=== PATIENT | male | born 1965 | race Caucasian/White ===

== ENCOUNTER 2017-11-26 02:50 | Emergency (ER) | payer OTHER ==
[~2017-11-26] VITALS: Ht 167.6 cm; Wt 96.2 kg
--- NOTE | 2017-11-26 02:55 | ED.ADGEN ---
Adult General Chief Complaint Chief Complaint ".. I tripped over my dog Aliyah... she was upset because some company came to door.. and hurt this Rt. shoulder in the fall.. I hurt this before.. I tired to put some cream on it.. to make it better... but it is still hurting... HPI HPI Patient is a 52 year old male who presents with above hx and complaints of Rt shoulder pain after being tripped by his dog at 2130 hrs tonight. Has deltoid sensation, and distal neurovascular intact. Pt. unable to raise are more than 40 degrees from his side. Give away weakness if assisted to higher than 40. Pt. denies other injury. Pt. has history of previous clavicle and right shoulder fracture. Review of Systems Review of Systems Constitutional: Denies fever or chills [] Eyes: Denies change in visual acuity, redness, or eye pain [] HENT: Denies nasal congestion or sore throat [] Respiratory: Denies cough or shortness of breath [] Cardiovascular: No additional information not addressed in HPI [] GI: Denies abdominal pain, nausea, vomiting, bloody stools or diarrhea [] : Denies dysuria or hematuria [] Musculoskeletal: Denies back pain or joint pain []Except complaints of Rt. shoulder pain. Integument: Denies rash or skin lesions [] Neurologic: Denies headache, focal weakness or sensory changes [] Endocrine: Denies polyuria or polydipsia [] All other systems were reviewed and found to be within normal limits, except as documented in this note. Family History Family History Non-contributory. Current Medications Current Medications Current Medications Medications (Trade) Dose Ordered Sig/Sonia Start Time Stop Time Status Last Admin Dose Admin Hydrocodone Bitartrate/ Ibuprofen (Vicoprofen 7.5-200) 2 tab 1X ONCE 11/26/17 03:15 11/26/17 03:16 DC 11/26/17 03:08 2 TAB Allergies Allergies Allergies Coded Allergies Type Severity Reaction Last Updated Verified quetiapine Allergy Unknown 11/26/17 Yes Physical Exam Physical Exam Constitutional: Moderate acute distress, non-toxic appearance. [] HENT: Normocephalic, atraumatic, bilateral external ears normal, oropharynx moist, no oral exudates, nose normal. [] Eyes: PERRLA, EOMI, conjunctiva normal, no discharge. [] Neck: Normal range of motion, no tenderness, supple, no stridor. [] Cardiovascular:Heart rate regular rhythm, no murmur [] Lungs & Thorax: Bilateral breath sounds equal at apex with scattered wheezing auscultation [] Abdomen: Bowel sounds normal, soft, no tenderness, no masses, no pulsatile masses. [] Skin: Warm, dry, no erythema, no rash. [] Tattoos Back: No tenderness, no CVA tenderness. [] Extremities: No tenderness, no cyanosis, no clubbing, ROM intact, no edema. [] Except Rt shoulder- as per HPI Neurologic: Alert and oriented X 3, normal motor function, normal sensory function, no focal deficits noted. [] Psychologic: Affect anxious, judgement normal, mood normal. [] Current Patient Data Vital Signs Vital Signs Date Time Temp Pulse Resp B/P (MAP) Pulse Ox O2 Delivery O2 Flow Rate FiO2 11/26/17 03:00 97.5 76 16 95 Room Air EKG EKG [] Radiology/Procedures Radiology/Procedures My interpretation of chest x-ray shows no acute cardiopulmonary findings. My interpretation of right shoulder shows old degenerative joint changes. No obvious fracture or dislocation.[] Course & Med Decision Making Course & Med Decision Making Pertinent Labs and Imaging studies reviewed. (See chart for details). Rest, ice packs, sling, and follow-up primary care. Have follow-up orthopedics. Passive range of motion 4 times a day. Tylenol and ibuprofen for pain. Marked pain may have Vicoprofen up 4 times a day. Return if any concerns.] Final Impression Final Impression 1. Rt. Shoulder []-rotator cuff injury Dragon Disclaimer Dragon Disclaimer This electronic medical record was generated, in whole or in part, using a voice recognition dictation system. MICHELE DURAN MD Nov 26, 2017 02:55
[2017-11-26 03:00] VITALS: BP 122/83
[2017-11-26] MEDS ORDERED: HYDROcodon/IBUPROFEN 7.5/200MG 1 TAB TABLET PO ONE (03:15)
[2017-11-26] MEDS ORDERED: HYDR-79 PO (03:21)
--- NOTE | 2017-11-26 08:33 | RAD ---
Chest, PA and Lateral: Technique: PA and lateral views of the chest were obtained. History: Chest pain., Fall Comparison: None. Findings: The heart and pulmonary vasculature appear within normal limits. The lungs are clear. The pleural margins are clear. Old right rib fracture. Impression: No acute chest process is seen. Electronically signed by: Des Hauser MD (11/26/2017 8:29 AM) [facility]
--- NOTE | 2017-11-26 08:34 | RAD ---
Examination: 2 views of the right shoulder HISTORY: History of fall, right shoulder pain COMPARISON: None available. FINDINGS: The humerus head is within the glenoid. There is mild joint space loss identified in the acromioclavicular joint and the glenohumeral joint. IMPRESSION: 1. No acute osseous findings. Electronically signed by: Des Hauser MD (11/26/2017 8:30 AM) [facility]
== END 2017-11-26 03:35 | disposition home or self-care (01) ==
LOC: ER 02:50
DX: S46.001A Unspecified injury of muscle(s) and tendon(s) of the rotator cuff of right shoulder, initial encounter (principal); R07.9 Chest pain, unspecified; Z88.8 Allergy status to other drugs, medicaments and biological substances; W01.0XXA Fall on same level from slipping, tripping and stumbling without subsequent striking against object, initial encounter; Y93.89 Activity, other specified; Y92.89 Other specified places as the place of occurrence of the external cause; Y99.8 Other external cause status
CPT/HCPCS: 71046; 73030; 99284

== ENCOUNTER → 2019-09-16 | Outpatient (CLI) | payer OTHER ==
[~2019-09-16] MED LIST: BUSP30TA PO; DEXL60CA2 PO; FLUT1AER IH; HYDR-1179 PO; LAMO200T3 PO; LEVE500T56 PO; LEVO75TA5 PO; LORA10TA55 PO; MONT10TA80 PO; VITA50004 PO
== END | disposition home or self-care (01) ==
LOC: LAB 13:52
PROVIDERS: ATTEND Nurse Anesthetist, Certified Registered
DX: Z01.818 Encounter for other preprocedural examination (principal); Z11.59 Encounter for screening for other viral diseases; K21.9 Gastro-esophageal reflux disease without esophagitis; R13.10 Dysphagia, unspecified
CPT/HCPCS: 36415; U0003

== ENCOUNTER → 2019-10-01 | Outpatient (CLI) | payer OTHER | END | disposition home or self-care (01) | LOC: LAB 16:10 | PROVIDERS: ATTEND Nurse Anesthetist, Certified Registered | DX: Z01.812 Encounter for preprocedural laboratory examination (principal); K21.9 Gastro-esophageal reflux disease without esophagitis; R13.10 Dysphagia, unspecified; Z20.828 Contact with and (suspected) exposure to other viral communicable diseases | CPT/HCPCS: C9803; U0003; 36415 ==

== ENCOUNTER → 2019-10-04 | Day surgery (SDC) | payer OTHER ==
[~2019-10-04] MED LIST changes: +IV RINGERS SOLUTION,LACTATED 1,000 ML IV SCH; +MIDAZOLAM HCL PF 2 MG/2 ML VIAL. IV ONE; +ONDANSETRON PF 4 MG/2 ML VIAL. IV PRN; +PROPOFOL 10,000 MCG/ML (20ML) VIAL IV ONE
[2019-10-04 13:37] VITALS: BP 146/85
--- NOTE | 2019-10-08 18:06 | PATHOLOGY ---
[facility] Accession Number: [id number] . 01 Material submitted: . PART A: stomach - ANTRUM GASTRITIS PART B: stomach - GASTRIC BODY POLYP . 01 Clinical history: . GERD . 02 Diagnosis: A. Gastric biopsies, antrum: - Focally active chronic gastritis, mild to moderate. . B. Gastric biopsy, gastric body polyp: - Hyperplastic polyp. (JPM:kmii 10/08/2019) QMS 10/08/2019 0938 Local . 02 Comment: Sections of the gastric antral biopsy reveal segments of gastric antral/body transition mucosa showing congestion and focally active, mild to focal moderate chronic inflammation. There are several lymphoid nodules present within the mucosa. A properly controlled immunoperoxidase stain for Helicobacter is negative for Helicobacter organisms. . Sections of the gastric body polyp biopsy reveal a polypoid segment of gastric body mucosa showing congestion and superficial foveolar hyperplasia consistent with hyperplastic polyp. There are no adenomatous changes or evidence of malignancy. (JPM:kimi; 10/08/2019) . Special stain performed: Immunoperoxidase stain for Helicobacter on A1. . 02 Electronically signed: . Cristi Adair MD, Pathologist NPI- [id number] . 01 Gross description: . A. The specimen is received in formalin, labeled "Nomi Grape, antrum gastritis". Received are two segments of pale adams soft tissue ranging in size from 0.3 to 0.4 cm in maximum dimensions. The specimen is submitted entirely in cassette A1. . B. The specimen is received in formalin, labeled "Nomi Grape, gastric body polyp". Received is a segment of pale adams soft tissue measuring 0.5 cm in maximum dimensions. The specimen is submitted entirely in cassette B1. (CAA; 10/07/2019) QAC/QAC 10/07/2019 1627 Local . Pathologist provided ICD-10: K29.50, K31.7 . 02 CPT . 686618, 832621, [id number] Specimen Comment: A courtesy copy of this report has been sent to [phone], [phone] Specimen Comment: [id number] Specimen Comment: Report sent to / DR PETERSON Performed at: 01 [facility] [address], [place] [id number] MD Des Jordan MD Phone: [phone] Performed at: 02 [facility] [address] [place], [place] [id number] MD Cristi Adair MD Phone: [phone]
== END | disposition home or self-care (01) ==
LOC: SURG 11:03
PROVIDERS: ATTEND Internal Medicine Gastroenterology
DX: R13.10 Dysphagia, unspecified (principal); K21.9 Gastro-esophageal reflux disease without esophagitis; K22.70 Barrett's esophagus without dysplasia; K29.50 Unspecified chronic gastritis without bleeding; G40.89 Other seizures; K22.2 Esophageal obstruction; K44.9 Diaphragmatic hernia without obstruction or gangrene; K31.7 Polyp of stomach and duodenum; F31.9 Bipolar disorder, unspecified; Z79.899 Other long term (current) drug therapy; Z88.8 Allergy status to other drugs, medicaments and biological substances; Z96.652 Presence of left artificial knee joint
CPT/HCPCS: 43239; 43450; J2704; J7120

== ENCOUNTER → 2019-11-12 | Outpatient (CLI) | payer OTHER ==
[2019-10-04 13:37] VITALS: BP 146/85
[~2019-11-12] MED LIST changes: -IV RINGERS SOLUTION,LACTATED 1,000 ML IV SCH; -MIDAZOLAM HCL PF 2 MG/2 ML VIAL. IV ONE; -ONDANSETRON PF 4 MG/2 ML VIAL. IV PRN; -PROPOFOL 10,000 MCG/ML (20ML) VIAL IV ONE
== END ==
LOC: LAB 10:00
PROVIDERS: ATTEND Registered Nurse
DX: Z01.812 Encounter for preprocedural laboratory examination (principal); K63.5 Polyp of colon; Z20.828 Contact with and (suspected) exposure to other viral communicable diseases
CPT/HCPCS: U0003-CS

== ENCOUNTER → 2019-11-26 | Outpatient (CLI) | payer OTHER ==
[2019-11-29 12:13] VITALS: BP 121/81
== END ==
LOC: LAB 15:00
PROVIDERS: ATTEND Nurse Anesthetist, Certified Registered
DX: Z01.812 Encounter for preprocedural laboratory examination (principal); Z12.11 Encounter for screening for malignant neoplasm of colon; Z20.828 Contact with and (suspected) exposure to other viral communicable diseases
CPT/HCPCS: U0003-CS

== ENCOUNTER → 2019-11-29 | Day surgery (SDC) | payer OTHER ==
[~2019-11-29] MED LIST changes: +IV RINGERS SOLUTION,LACTATED 1,000 ML IV SCH; +MIDAZOLAM HCL PF 2 MG/2 ML VIAL. IV ONE; +ONDANSETRON PF 4 MG/2 ML VIAL. IV PRN; +PROPOFOL 10,000 MCG/ML (20ML) VIAL IV ONE
[2019-11-29 12:13] VITALS: BP 121/81
== END | disposition home or self-care (01) ==
LOC: SURG 10:32
PROVIDERS: ATTEND Internal Medicine Gastroenterology
DX: Z09 Encounter for follow-up examination after completed treatment for conditions other than malignant neoplasm (principal); K64.8 Other hemorrhoids; K63.89 Other specified diseases of intestine; K21.9 Gastro-esophageal reflux disease without esophagitis; K22.70 Barrett's esophagus without dysplasia; F41.9 Anxiety disorder, unspecified; J45.909 Unspecified asthma, uncomplicated; R56.9 Unspecified convulsions; Z88.8 Allergy status to other drugs, medicaments and biological substances; Z86.010 Personal history of colon polyps; Z79.899 Other long term (current) drug therapy; Z98.890 Other specified postprocedural states
CPT/HCPCS: 45378; J2704; J7120

== ENCOUNTER 2020-09-01 22:01 | Emergency (ER) | payer OTHER, MEDICAID ==
[~2020-09-01] VITALS: Ht 160 cm; Wt 90.9 kg
[~2020-09-01 22:01] MED LIST changes: -IV RINGERS SOLUTION,LACTATED 1,000 ML IV SCH; +LORA-52 PO; -LORA10TA55 PO; -MIDAZOLAM HCL PF 2 MG/2 ML VIAL. IV ONE; -ONDANSETRON PF 4 MG/2 ML VIAL. IV PRN; -PROPOFOL 10,000 MCG/ML (20ML) VIAL IV ONE
--- NOTE | 2020-09-01 22:24 | PHYS DOC ---
Past History Past Medical History: Asthma, Seizure Past Surgical History: Knee Replacement Alcohol Use: Occasionally Drug Use: None Adult General Chief Complaint Chief Complaint: BURN/SMOKE INHALATION HPI HPI Patient is a 54-year-old male who presents with a burn to the right lower extremity. States he was out mowing the lawn about 2 hours before coming to the emergency department and burned his leg on his lawnmower. Denies any other injuries. States he is not up-to-date on his tetanus vaccination. States that the pain is 6 out of 10, sharp in nature. Review of Systems Review of Systems Review of systems otherwise unremarkable except noted in HPI Current Medications Current Medications Current Medications Medications (Trade) Dose Ordered Sig/Sonia Start Time Stop Time Status Last Admin Dose Admin Acetaminophen/ Hydrocodone Bitart (Lortab 5/325) 2 tab 1X ONCE 09/01/20 22:30 09/01/20 22:31 Allergies Allergies Allergies Coded Allergies Type Severity Reaction Last Updated Verified benztropine Allergy Intermediate 11/14/19 Yes metoclopramide Allergy Intermediate 11/14/19 Yes quetiapine Allergy Intermediate 11/14/19 Yes Physical Exam Physical Exam Constitutional: Well developed, well nourished, no acute distress, non-toxic appearance. [] Extremities: Area of first and second-degree burn on inner right lower extremity approximately 6 cm in diameter no blisters noted, with some sloughed skin Neurologic: Alert and oriented X 3, normal motor function, normal sensory function, no focal deficits noted. [] Psychologic: Affect normal, judgement normal, mood normal. [] EKG EKG [] Radiology/Procedures Radiology/Procedures [] Heart Score C/O Chest Pain: No Risk Factors: Risk Factors: DM, Current or recent (<one month) smoker, HTN, HLP, family history of CAD, obesity. Risk Scores: Risk Factors: DM, Current or recent (<one month) smoker, HTN, HLP, family history of CAD, obesity. Course & Med Decision Making Course & Med Decision Making Patient is a 54-year-old male who presents with a lower extremity burn from his lumbar Vital signs not concerning. Physical exam noted above. Updated tetanus. Given pain medication. Started on antibiotics in ED. Cleaned wound extensively with sterile water. Bandaged with nonstick. Gave patient materials to take home to replace bandages daily. Advised to call primary care physician in the morning and set up a wound check in the next 3 to 5 days. Gave return precautions to the ED. Patient grateful, verbalized understanding and agreed with plan of discharge. [] Dragon Disclaimer Dragon Disclaimer This electronic medical record was generated, in whole or in part, using a voice recognition dictation system. Departure Departure: Impression: Primary Impression: Burn Disposition: HOME / SELF CARE / HOMELESS Condition: GOOD Referrals: VERN PETERSON (PCP) Patient Instructions: Burn Care, Electrical Burn, [id number] Additional Instructions: Thank you for coming into the emergency department tonight and allowing us to take care of you. Please read all of the attached information very carefully to go back over what we discussed. As discussed, keep the area clean, dry and bandaged daily. Please call your primary care physician first thing in the morning to update on ED visit and set up a follow-up visit for a wound check in 3 to 5 days. You can use Tylenol, ibuprofen, Benadryl and ice as needed. Please come back to the ED with new or concerning symptoms as discussed. SHADIA MORTON MD Sep 01, 2020 22:24
[2020-09-01] MEDS ORDERED: HYDROcodone/APAP 5/325MG 1 TAB TABLET PO ONE (22:30)
[2020-09-01] MEDS ORDERED: DIPH,PERTUSS(ACELL),TET VAC/PF 0.5 ML SYRINGE. VAX IM ONE ×3 (22:50→23:30)
[2020-09-01 22:55] VITALS: BP 155/89
== END 2020-09-01 23:07 | disposition home or self-care (01) ==
LOC: ER 22:01
DX: T24.201A Burn of second degree of unspecified site of right lower limb, except ankle and foot, initial encounter (principal); J45.909 Unspecified asthma, uncomplicated; Z88.8 Allergy status to other drugs, medicaments and biological substances; X17.XXXA Contact with hot engines, machinery and tools, initial encounter; Y93.89 Activity, other specified; Y92.89 Other specified places as the place of occurrence of the external cause; Y99.8 Other external cause status
CPT/HCPCS: 16020; 90471; 90715; 99283

== ENCOUNTER 2021-02-24 17:43 | Emergency (ER) | payer OTHER, MEDICAID ==
[~2021-02-24] VITALS: Ht 160 cm; Wt 90.9 kg
[2021-02-24 18:23] VITALS: BP 155/89
--- NOTE | 2021-02-24 18:35 | PHYS DOC ---
Past History Past Medical History: Asthma, Seizure Past Surgical History: Knee Replacement Additional Past Surgical Histo: right knee Alcohol Use: Occasionally Drug Use: None Adult General Chief Complaint Chief Complaint: KNEE INJURY HPI HPI Patient is a 55-year-old male, status post right knee replacement 4 weeks ago who presents with right knee pain and swelling. States that since his replacement his knee has been warm and red. States he called his orthopedic surgeon today and has an appointment with him tomorrow but was concerned about pain and infection. States he used his last pain pill yesterday. Denies any recent traumas, illnesses, fevers, chest pain, shortness of breath, abdominal pain, nausea, vomiting, diarrhea. States he is able to walk without issue. Denies any numbness/weakness/tingling. Review of Systems Review of Systems Review of systems otherwise unremarkable except noted in HPI Allergies Allergies Allergies Coded Allergies Type Severity Reaction Last Updated Verified benztropine Allergy Intermediate 09/02/20 Yes metoclopramide Allergy Intermediate 09/02/20 Yes quetiapine Allergy Intermediate 09/02/20 Yes Physical Exam Physical Exam Constitutional: Well developed, well nourished, no acute distress, non-toxic appearance. [] HENT: Normocephalic, atraumatic, oropharynx moist, no oral exudates, nose normal. [] Eyes: conjunctiva normal, no discharge. [] Neck: Normal range of motion, no tenderness, supple, no stridor. [] Cardiovascular:Heart rate regular rhythm, no murmur [] Lungs & Thorax: Bilateral breath sounds clear to auscultation [] Skin: Warm, dry, no erythema, no rash. [] Back: No tenderness, Extremities: Right lower extremity from knee down, warm with mild edema and a surgical scar that is clean, dry and intact, range of motion intact, neurovascular exam intact Neurologic: Alert and oriented X 3, no focal deficits noted. [] Psychologic: Affect normal, judgement normal, mood normal. [] Current Patient Data Vital Signs Vital Signs Date Time Temp Pulse Resp B/P (MAP) Pulse Ox O2 Delivery O2 Flow Rate FiO2 02/24/21 18:23 98.7 90 18 155/89 (111) 97 Room Air EKG EKG [] Radiology/Procedures Radiology/Procedures [] Heart Score C/O Chest Pain: No Risk Factors: Risk Factors: DM, Current or recent (<one month) smoker, HTN, HLP, family history of CAD, obesity. Risk Scores: Risk Factors: DM, Current or recent (<one month) smoker, HTN, HLP, family history of CAD, obesity. Course & Med Decision Making Course & Med Decision Making Patient is a 55-year-old male who presents with right knee pain status post knee replacement a month ago Vital signs not concerning. Physical exam noted above. Patient started on Augmentin as a short course given patient's concern for infection and the fact that he is following up tomorrow with his orthopedic surgeon. Given pain medicine. Imaging with no acute osseous abnormalities or misaligned hardware. DVT ultra sound negative. Discussed findings with patient. Advised to keep his appointment in the morning with his orthopedic surgeon. Gave return precautions to the ED. Family grateful, verbalized understanding and agreed with plan of discharge. [] Dragon Disclaimer Dragon Disclaimer This electronic medical record was generated, in whole or in part, using a voice recognition dictation system. Departure Departure: Impression: Primary Impression: Knee pain Disposition: HOME / SELF CARE / HOMELESS Condition: STABLE Referrals: VERN PETERSON (PCP) Patient Instructions: Knee Pain, RICE - Routine Care for Injuries Additional Instructions: Thanks for coming into the emergency department tonight and allowing us to take care of you. Please read the attached information carefully to go over some of the things we discussed. You can use ice, Tylenol and ibuprofen as tolerated and as long as you are not allergic for symptom control at home. Please take your antibiotics as prescribed and let your orthopedic surgeon decide if you need to continue after your appointment in the morning. Please come back with new or concerning symptoms as we discussed. Scripts Amoxicillin/Potassium Clav (AUGMENTIN 875-125 TABLET) 1 Each Tablet 1 TAB PO BID for wound for 5 Days, #10 TAB 0 Refills Prov: SHADIA MORTON MD 02/24/21 SHADIA MORTON MD Feb 24, 2021 18:35
--- NOTE | 2021-02-24 18:51 | RAD ---
XR KNEE 3 VIEWS_RT, XR RT TIBIA+FIBULA History: Pain status post knee replacement Comparison: None. Technique: 3 views of the right knee. 2 views of the right tibia and fibula. Findings: Osseous mineralization is normal. No acute fracture or dislocaton. Postsurgical features from right t otal knee arthroplasty. Well-seated distal femur and proximal tibial components. Alignment is anatomi c. There is a moderate knee effusion and soft tissue swelling around the knee. ORIF of the lateral as pect distal fibula without evidence of loosening. Degenerative changes of the ankle with complete caitlin nt space loss at the tibiotalar joint laterally. Impression: 1. Right total knee arthroplasty with normal alignment and no evidence of loosening. 2. Moderate knee effusion and soft tissue swelling about the knee. 3. Severe degenerative changes of the right ankle. Electronically signed by: Amrik Calhoun MD (02/24/2021 6:49 PM) [facility]
[2021-02-24] MEDS ORDERED: AMOXICILLIN/K CLAV 875/125MG TABLET. PO ONE (19:00)
[2021-02-24] MEDS ORDERED: oxyCODONE/APAP 5/325 1 TAB TABLET PO ONE (19:00)
[2021-02-24] MEDS ORDERED: AMOX1TAB61 PO (19:56)
--- NOTE | 2021-02-24 20:00 | RAD ---
STUDY: US DPLX VENOUS EXTREMITY LOWER RT INDICATION: Swelling right leg after knee replacement. TECHNIQUE: Color-flow and pulsed wave duplex ultrasound with compression of venous structures of the right lower extremity. COMPARISON: None Available. FINDINGS: Duplex ultrasound with compression of the deep venous structures of the right lower extremity from th e common femoral vein through the popliteal vein is negative for DVT. The posterior tibial and peroneal veins are segmentally visualized and patent where seen. Normal veno us waveforms and augmentation are noted throughout. IMPRESSION: No deep venous thrombosis of the right lower extremity. Electronically signed by: Amrik Calhoun MD (02/24/2021 7:58 PM) [facility]
== END 2021-02-24 20:04 | disposition home or self-care (01) ==
LOC: ER 17:43
DX: M25.561 Pain in right knee (principal); R22.41 Localized swelling, mass and lump, right lower limb; J45.909 Unspecified asthma, uncomplicated; Z96.651 Presence of right artificial knee joint; Z88.8 Allergy status to other drugs, medicaments and biological substances
CPT/HCPCS: 73562; 73590; 93971; 99284